=== PATIENT | male | born 1955 | race Hispanic/Latino ===

== ENCOUNTER 2018-08-19 11:06 | Emergency (ER) | payer OTHER ==
--- NOTE | 2018-08-19 13:46 | RAD REPORT ---
EXAM DESCRIPTION: Luis Antonio Single View08/19/2018 1:36 pm CLINICAL HISTORY: Chest pain COMPARISON: 2016 FINDINGS: The lungs appear clear of acute infiltrate. The heart is normal size IMPRESSION: No acute abnormalities displayed
[2018-08-19 14:06] LABS: Absolute Lymphocytes (CBC) 0.9 K/uL (0.7-4.9); Absolute Monocytes 0.9 K/uL (0.1-1.3); Absolute Neutrophil 8.5 K/uL (1.8-8.0); Basophils % 0.4 % (0-1.3); Hematocrit 43.6 % (39.6-49.0); Lymphocytes % 8.8 % (15.3-44.8); MPV 9.3 fL (7.6-11.3); Monocytes % 8.3 % (3.3-12.3); RBC Red Blood Cell Count 5.01 M/uL (4.33-5.43)
[2018-08-19 14:12] LABS: Protime INR 1.16
[2018-08-19] MEDS ORDERED: ONDANSETRON 4 MG/2 ML VIAL ONE (14:31)
[2018-08-19] MEDS ORDERED: MORPHINE 4 MG/ML SYR ONE (14:31)
[2018-08-19 14:34] LABS: Urine Bacteria >50 /HPF (NONE SEEN); Urine RBC 20-50 /HPF (NONE SEEN)
[2018-08-19 14:34] LABS: ALT/SGPT 32 U/L (12-78); AST/SGOT 19 U/L (15-37); Albumin 3.8 g/dL (3.4-5.0); Alkaline Phosphatase 75 U/L (45-117); BUN Blood Urea Nitrogen 15 mg/dL (7-18); Bicarbonate 26 mmol/L (21-32); Bilirubin Direct 0.2 mg/dL (0-0.2); Glucose Level 143 mg/dL (74-106); Magnesium 1.9 mg/dL (1.8-2.4); NT PRO-BNP 38 pg/mL (<125); Potassium 4.3 mmol/L (3.5-5.1); Protein, Total 7.9 g/dL (6.4-8.2); Sodium Level 136 mmol/L (136-145); Troponin (Emerg Dept Use Only) < 0.02 ng/mL (0.0-0.045)
[2018-08-19 14:35] LABS: Urine Culture Reflex Order REFLEXED
--- NOTE | 2018-08-19 15:20 | RAD REPORT ---
EXAM DESCRIPTION: CT - Abdomen Pelvis W Contrast - 08/19/2018 2:52 pm CLINICAL HISTORY: Abdominal pain, weakness, left lower quadrant pain, history of right nephrectomy a nd cholecystectomy COMPARISON: CT study January 2017 TECHNIQUE: Biphasic, helical CT imaging of the abdomen and pelvis was performed following 100 ml non -ionic IV contrast. Oral contrast was given. All CT scans are performed using dose optimization technique as appropriate and may include automated exposure control or mA/KV adjustment according to patient size. FINDINGS: No suspicious findings in the lung bases. The liver, spleen, and pancreas show no suspicious findings. Cholecystectomy clips are present. No bi liary tree dilatation. Right nephrectomy surgical changes are present with no abnormality the right renal bed. Right adrenal gland normal. Several cysts are present in the left kidney. No pyelonephritis findings. The cysts ar e not clearly different comparison. Function is not appear to be delayed. Patient has nonobstructing 3 millimeter calyx calculi. Ureter shows mild dilatation without an obstructing calculus. Álvarez of th e ureter is slightly thickened and minimally enhance. No urinary bladder wall thickening or mass. No new adrenal finding on the left. No gastric dilatation or wall thickening. No acute small bowel finding. Patient is status post right hemicolectomy. Small bowel colon anastomosis is unremarkable. No active GI process seen. No free air, free fluid or inflammatory stranding. No mass or bulky lymphadenopathy. There is laxi ty of the supraumbilical anterior abdominal wall. No defect is seen. There is a small fat only umbili jose angel hernia present. Small left inguinal hernia present with only fat. Disc and bony degenerative changes are present. No pathologic bone process. IMPRESSION: No obstruction, free air or surgically emergent finding. Mild dilatation of the left collecting system with mild wall enhancement. No obstructing or nonobstru cting calculus. No delay left renal function and no pyelonephritis. Ureter dilatation may be a recently passed stone. Inflammatory debris or blood can cause dilatation. Findings are suspicious for ureteritis and can be correlated with UA abnormalities. Patient is status post right nephrectomy, cholecystectomy and right hemicolectomy.
[2018-08-19 15:44] LABS: Urine Blood 3+ (NEG); Urine Glucose NEGATIVE (NEG); Urine Protein 2+ (NEG); Urine pH 5.5 (5.0-7.0)
--- NOTE | 2018-08-19 15:45 | ER ---
Nurse's Notes [facility] Name: Ronan Munroe Age: 62 yrs Sex: Male : 1955 Arrival Date: 08/19/2018 Time: 11:08 Bed 18 Private MD: Diagnosis: Urethritis and urethral syndrome Presentation: 08/19 11:25 Presenting complaint: Patient states: Generalized weakness, N/V, and LLQ pain x approx ph 1 week, also reports dark stools on Friday. Transition of care: patient was not received from another setting of care. No acute neurological deficit is noted. Onset of symptoms was August 19, 2018. Risk Assessment: Do you want to hurt yourself or someone else? Patient reports no desire to harm self or others. Care prior to arrival: None. 11:25 Method Of Arrival: Ambulatory 11:25 Acuity: FRANCIE 3 ph Stroke Activation: Symptom onset > 6 hours Physician: Stroke Attending; Name: ; Notified At: ; Arrived At: Physician: Chief Stroke Resident; Name: ; Notified At: ; Arrived At: Physician: Stroke Resident; Name: ; Notified At: ; Arrived At: Physician: ED Attending; Name: ; Notified At: ; Arrived At: Physician: ED Resident; Name: ; Notified At: ; Arrived At: Historical: - Allergies: 11:28 No Known Allergies; ph - PMHx: 11:28 Diabetes - NIDDM; High Cholesterol; ph - PSHx: 11:28 R kidney removed; Cholecystectomy; ph - Immunization history:: Adult Immunizations unknown. - Social history:: Smoking status: Patient/guardian denies using tobacco. - Ebola Screening: : No symptoms or risks identified at this time. Screenin:30 Abuse screen: Denies threats or abuse. Denies injuries from another. Nutritional sg screening: No deficits noted. Tuberculosis screening: No symptoms or risk factors identified. Never had TB. Fall Risk None identified. Assessment: 12:24 VAN Scoring: Arm Drift: Patients demonstrates NO arm weakness. Patient is VAN Negative. sg General: Appears in no apparent distress. uncomfortable, well groomed, well developed, well nourished, Behavior is calm, cooperative, appropriate for age. Pain: Complains of pain in body aches with weakness in entire body. Neuro: Level of Consciousness is awake, alert, obeys commands, Oriented to person, place, time, situation, Automated Weaver are equal bilaterally Moves all extremities. Facial symmetry appears normal. Cardiovascular: Capillary refill is brisk in bilateral fingers Patient's skin is warm and dry. Respiratory: Respiratory effort is even, unlabored, Respiratory pattern is regular, symmetrical. GI: No signs and/or symptoms were reported involving the gastrointestinal system. : No signs and/or symptoms were reported regarding the genitourinary system. EENT: No signs and/or symptoms were reported regarding the EENT system. Derm: Skin is pink, warm \T\ dry. Musculoskeletal: No signs and/or symptoms reported regarding the musculoskeletal system. 16:54 Reassessment: awaiting a call back from pt PCP per prior to DC to home. Vital Signs: 11:27 BP 141 / 75; Pulse 86; Resp 18; Temp 98.6(TE); Pulse Ox 98% on R/A; Weight 112.49 kg; ph Height 5 ft. 5 in. (165.10 cm); Pain 10/10; 13:41 BP 126 / 74; Pulse 82; Resp 17; Pulse Ox 99% on R/A; Pain 10/10; sg 14:31 BP 130 / 82; Pulse 80; Resp 15; Temp 97.8(O); Pulse Ox 98% on R/A; mh5 15:20 BP 134 / 86; Pulse 80; Resp 20; Temp 97.8(TE); Pulse Ox 95% ; mh5 11:27 Body Mass Index 41.27 (112.49 kg, 165.10 cm) ph NIH Stroke Scale Scores: 12:24 NIHSS Score: 0 ED Course: 11:08 Patient arrived in ED. as 11:26 Triage completed. ph 11:28 Arm band placed on. ph 12:18 Bam Sexton MD is Attending Physician. kdr 12:20 Rodo Mendosa, TOBY is Primary Nurse. sg 13:27 EKG done, by geotechnical field technician. reviewed by Bam Sexton MD. at1 13:35 X-ray completed. Portable x-ray completed in exam room. Patient tolerated procedure sw well. 13:36 XRAY Chest (1 view) In Process Unspecified. EDMS 14:[address] via wheelchair. sj 14:48 CT completed. Patient tolerated procedure well. Patient moved back from CT. wa 14:52 CT Abd/Pelvis - W/Contrast In Process Unspecified. EDMS Administered Medications: 14:20 Drug: morphine 4 mg Route: IVP; Site: right antecubital; sg 14:20 Drug: Zofran 4 mg Route: IVP; Site: right antecubital; sg 16:20 Drug: Rocephin - (cefTRIAXone) 2 grams Route: IVPB; Infused Over: 30 mins; Site: right sg antecubital; 17:20 Drug: [place] 10 mg-325 mg 1 tabs Route: PO; sg Outcome: 15:44 Discharge ordered by . kdr 17:25 Patient left the ED. NIH Stroke Scale - NIH Stroke Score Date: 08/19/2018 Time: 12:24 Total Score = 0 1a. Level of Consciousness (LOC) - 0(Alert) 1b. Level of Consciousness (LOC) (Year \T\ Age) - 0(Both) 1c. LOC Commands (Open \T\ Closes Eyes/Data Virtualization Consultant) - 0(Both) 2. Best Gaze (Lateral Gaze Paresis) - 0(Normal) 3. Visual Field Loss - 0(No visual loss) 4. Facial Palsy - 0(Normal) 5a. Left Arm: Motor (10-second hold) - 0(No drift) 5b. Right Arm: Motor (10-second hold) - 0(No drift) 6a. Left Leg: Motor (5-second hold - always test supine) - 0(No drift) 6b. Right Leg: Motor (5-second hold - always test supine) - 0(No drift) 7. Limb Ataxia (finger/nose \T\ heel/garber - test with eyes open) - 0(Absent) 8. Sensory Loss (pinprick arms/legs/face) - 0(Normal) 9. Best Language: Aphasia (description/naming/reading) - 0(No aphasia) 10. Dysarthria (speech clarity - read or repeat words) - 0(Normal) 11. Extinction and Inattention (visual/tactile/auditory/spatial/personal) - 0(No abnormality) Initials: Addendum: 08/21/2018 07:42 Addendum: Culture Results: Positive urine culture. No further action required. iw Bacteria sensitive to prescribed antibiotic. Signatures: Dispatcher [employer] EDMS Rodo Mendosa RN RN Bam Sarabia MD MD [facility] Riley, Maria Isabel Handy, Elida Ryan RN RN Hem[place], [facility], [facility] Corbin RN RN Frank, Evelyn Basurto, Aidan Handy, [place] [id number]
--- NOTE | 2018-08-19 15:45 | EDPHYS ---
Physician Documentation [facility] Name: Ronan Munroe Age: 62 yrs Sex: Male : 1955 Arrival Date: 08/19/2018 Time: 11:08 Bed 18 Private MD: ED Physician Bam Sexton HPI: 08/19 15:27 This 62 yrs old Male presents to ER via Ambulatory with complaints of Pain All kdr Over, Weakness. 15:27 The patient c/o generalized abdominal pain worse on LLQ, he has also had dark stools kdr for about a week. He has been feeling generally weak and tired. He has not had this before and has no other c/o. Onset: The symptoms/episode began/occurred gradually, 1 week(s) ago. The patient has not experienced similar symptoms in the past. The patient has not recently seen a physician. Pain is similar to the pain he had prior to his colectomy. 08/20 07:15 Today, the patient had worsening of his pain in the LLQ which is what brought him to kdr the ED today. Historical: - Allergies: 08/19 11:28 No Known Allergies; ph - PMHx: 11:28 Diabetes - NIDDM; High Cholesterol; ph - PSHx: 11:28 R kidney removed; Cholecystectomy; ph - Immunization history:: Adult Immunizations unknown. - Social history:: Smoking status: Patient/guardian denies using tobacco. - Ebola Screening: : No symptoms or risks identified at this time. ROS: 08/20 07:15 Constitutional: Negative for fever, chills, and weight loss, Eyes: Negative for injury, kdr pain, redness, and discharge, ENT: Negative for injury, pain, and discharge, Neck: Negative for injury, pain, and swelling, Cardiovascular: Negative for chest pain, palpitations, and edema, Respiratory: Negative for shortness of breath, cough, wheezing, and pleuritic chest pain, Back: Negative for injury and pain, : Negative for injury, bleeding, discharge, and swelling, MS/Extremity: Negative for injury and deformity, Skin: Negative for injury, rash, and discoloration, Neuro: Negative for headache, weakness, numbness, tingling, and seizure activity. Psych: Negative for depression, anxiety, suicide ideation, homicidal ideation, and hallucinations, Allergy/Immunology: Negative for hives, rash, and allergies, Endocrine: Negative for neck swelling, polydipsia, polyuria, polyphagia, and marked weight changes, Hematologic/Lymphatic: Negative for swollen nodes, abnormal bleeding, and unusual bruising. 07:15 Abdomen/GI: Positive for abdominal pain, nausea, black/tarry stool, Negative for kdr vomiting, diarrhea, constipation, abdominal cramps, abdominal distension, anorexia, hematemesis. Exam: 07:15 Constitutional: This is a well developed, well nourished patient who is awake, alert, kdr and in no acute distress. Head/Face: Normocephalic, atraumatic. Eyes: Pupils equal round and reactive to light, extra-ocular motions intact. Lids and lashes normal. Conjunctiva and sclera are non-icteric and not injected. Cornea within normal limits. Periorbital areas with no swelling, redness, or edema. Vital Signs: 08/19 11:27 BP 141 / 75; Pulse 86; Resp 18; Temp 98.6(TE); Pulse Ox 98% on R/A; Weight 112.49 kg; ph Height 5 ft. 5 in. (165.10 cm); Pain 10/10; 13:41 BP 126 / 74; Pulse 82; Resp 17; Pulse Ox 99% on R/A; Pain 10/10; sg 14:31 BP 130 / 82; Pulse 80; Resp 15; Temp 97.8(O); Pulse Ox 98% on R/A; mh5 15:20 BP 134 / 86; Pulse 80; Resp 20; Temp 97.8(TE); Pulse Ox 95% ; mh5 11:27 Body Mass Index 41.27 (112.49 kg, 165.10 cm) ph NIH Stroke Scale Scores: 12:24 NIHSS Score: 0 sg MDM: 15:44 Patient medically screened. kdr 08/20 07:20 Data reviewed: vital signs, nurses notes, lab test result(s), radiologic studies. kdr Counseling: I had a detailed discussion with the patient and/or guardian regarding: the historical points, exam findings, and any diagnostic results supporting the discharge/admit diagnosis, lab results, radiology results, the need for outpatient follow up. Physician consultation: Kendall Lopez MD. 08/19 13:17 Order name: Basic Metabolic Panel kdr 08/19 13:17 Order name: CBC with Diff kdr 08/19 13:17 Order name: LFT's kdr 08/19 13:17 Order name: Magnesium; Complete Time: 14:43 kdr 08/19 13:17 Order name: NT PRO-BNP; Complete Time: 14:43 kdr 08/19 13:17 Order name: PT-INR; Complete Time: 14:43 kdr 08/19 13:17 Order name: Troponin (emerg Dept Use Only); Complete Time: 14:43 kdr 08/19 13:18 Order name: Basic Metabolic Panel; Complete Time: 14:43 EDMS 08/19 13:18 Order name: CBC with Automated Diff; Complete Time: 14:43 EDMS 08/19 13:18 Order name: Liver (Hepatic) Function; Complete Time: 14:43 EDMS 08/19 13:27 Order name: Occult Blood--Ancillary; Complete Time: 14:43 bd 08/19 13:50 Order name: Urine Microscopic Only; Complete Time: 14:43 sg 08/19 14:37 Order name: Urine Culture EDCT 08/19 15:40 Order name: Urine Dipstick--Ancillary (enter results); Complete Time: 16:37 ss 08/19 13:17 Order name: XRAY Chest (1 view); Complete Time: 14:43 kdr 08/19 13:17 Order name: EKG; Complete Time: 13:18 kdr 08/19 13:17 Order name: Cardiac monitoring; Complete Time: 13:43 kdr 08/19 13:17 Order name: EKG - Nurse/Tech; Complete Time: 13:43 kdr 08/19 13:17 Order name: IV Saline Lock; Complete Time: 13:43 kdr 08/19 13:17 Order name: Labs collected and sent; Complete Time: 13:43 kdr 08/19 13:17 Order name: O2 Per Protocol; Complete Time: 13:43 kdr 08/19 13:17 Order name: O2 Sat Monitoring; Complete Time: 13:43 kdr 08/19 13:30 Order name: CT Abd/Pelvis - W/Contrast; Complete Time: 15:25 kdr Administered Medications: 08/19 14:20 Drug: morphine 4 mg Route: IVP; Site: right antecubital; sg 14:20 Drug: Zofran 4 mg Route: IVP; Site: right antecubital; sg 16:20 Drug: Rocephin - (cefTRIAXone) 2 grams Route: IVPB; Infused Over: 30 mins; Site: right sg antecubital; 17:20 Drug: [place] 10 mg-325 mg 1 tabs Route: PO; sg Disposition: 08/19/18 15:44 Discharged to Home. Impression: Urethritis and urethral syndrome. - Condition is Stable. - Discharge Instructions: Urethritis, Adult, Urinary Tract Infection, Adult, [id number]. - Prescriptions for Tylenol- Codeine #3 300-30 mg Oral Tablet - take 2 tablets by ORAL route every 4-6 hours As needed; 12 tablet. Cipro 500 mg Oral Tablet - take 1 tablet by ORAL route every 12 hours for 10 days; 20 tablet. - Medication Reconciliation Form, Thank You Letter, Antibiotic Education, Prescription Opioid Use form. - Follow up: Private Physician; When: 2 - 3 days; Reason: If symptoms return, Further diagnostic work-up, Recheck today's complaints, Continuance of care, Re-evaluation by your physician. - Problem is new. - Symptoms have improved. NIH Stroke Scale - NIH Stroke Score Date: 08/19/2018 Time: 12:24 Total Score = 0 1a. Level of Consciousness (LOC) - 0(Alert) 1b. Level of Consciousness (LOC) (Year \T\ Age) - 0(Both) 1c. LOC Commands (Open \T\ Closes Eyes/Instrumentation And Controls Designer) - 0(Both) 2. Best Gaze (Lateral Gaze Paresis) - 0(Normal) 3. Visual Field Loss - 0(No visual loss) 4. Facial Palsy - 0(Normal) 5a. Left Arm: Motor (10-second hold) - 0(No drift) 5b. Right Arm: Motor (10-second hold) - 0(No drift) 6a. Left Leg: Motor (5-second hold - always test supine) - 0(No drift) 6b. Right Leg: Motor (5-second hold - always test supine) - 0(No drift) 7. Limb Ataxia (finger/nose \T\ heel/garber - test with eyes open) - 0(Absent) 8. Sensory Loss (pinprick arms/legs/face) - 0(Normal) 9. Best Language: Aphasia (description/naming/reading) - 0(No aphasia) 10. Dysarthria (speech clarity - read or repeat words) - 0(Normal) 11. Extinction and Inattention (visual/tactile/auditory/spatial/personal) - 0(No abnormality) Initials: sg Signatures: Dispatcher [employer] EDRodo Shaikh RN RN sg Bam Sexton MD MD kdr Court Corbin RN RN ph Corrections: (The following items were deleted from the chart) 17:25 15:44 08/19/2018 15:44 Discharged to Home. Impression: Urethritis and urethral sg syndrome. Condition is Stable. Forms are Medication Reconciliation Form, Thank You Letter, Antibiotic Education, Prescription Opioid Use. Follow up: Private Physician; When: 2 - 3 days; Reason: If symptoms return, Further diagnostic work-up, Recheck today's complaints, Continuance of care, Re-evaluation by your physician. Problem is new. Symptoms have improved. kdr 08/20 07:20 07:15 Constitutional: Negative for fever, chills, and weight loss, Eyes: kdr Negative for injury, pain, redness, and discharge, ENT: Negative for injury, pain, and discharge, Neck: Negative for injury, pain, and swelling, Respiratory: Negative for shortness of breath, cough, wheezing, and pleuritic chest pain, Abdomen/GI: Negative for abdominal pain, nausea, vomiting, diarrhea, and constipation, Back: Negative for injury and pain, : Negative for injury, bleeding, discharge, and swelling, MS/Extremity: Negative for injury and deformity, Skin: Negative for injury, rash, and discoloration, Neuro: Negative for headache, weakness, numbness, tingling, and seizure activity. Psych: Negative for depression, anxiety, suicide ideation, homicidal ideation, and hallucinations, Allergy/Immunology: Negative for hives, rash, and allergies, Endocrine: Negative for neck swelling, polydipsia, polyuria, polyphagia, and marked weight changes, Hematologic/Lymphatic: Negative for swollen nodes, abnormal bleeding, and unusual bruising, kdr 07:20 07:15 Cardiovascular: Positive for chest pain, palpitations, Negative for kdr edema, orthopnea, paroxysmal nocturnal dyspnea, kdr
--- NOTE | 2018-08-19 15:55 | EKG ---
Test Date: 2018-08-19 Test Time: 13:27:54 Registered Nurse Supervisor: HEATHER MEASUREMENT RESULTS: Intervals: Rate: 83 UT: 180 QRSD: 84 QT: 358 QTc: 420 [place]: P: 58 UT: 180 QRS: 51 T: 61 INTERPRETIVE STATEMENTS: Normal sinus rhythm Normal ECG Compared to ECG 10/09/2004 16:06:00 Myocardial infarct finding no longer present Electronically Signed On 08-19-18 15:54:53 CDT by Rajat Jones
[2018-08-19] MEDS ORDERED: CEFTRIAXONE/SWI 1gm 2 GM/20 ML SYR ONE (16:24)
[2018-08-19] MEDS ORDERED: HYDROCODONE/APAP 10/325 TAB ONE (17:34)
== END 2018-08-19 17:25 | disposition home or self-care (01) ==
LOC: ER 11:06
DX: N34.2 Other urethritis (principal); N34.3 Urethral syndrome, unspecified; E11.9 Type 2 diabetes mellitus without complications
CPT/HCPCS: 36415; 71045; 74177; 80048; 80076; 81003; 81015; 82272; 83735; 83880; 84484; 85025; 85610; 87077; 87086; 87088; 87186; 93005; 96374; 96375; 99284; J0696; J2405; Q9967